=== PATIENT | female | born 1995 | race Caucasian/White ===

== ENCOUNTER 2016-11-29 01:11 | Emergency (ER) | payer BC ==
[~2016-11-29] VITALS: Ht 167.6 cm; Wt 71.2 kg
[~2016-11-29 01:11] MED LIST: CLR10 PO
[2016-11-29 01:13] VITALS: TEMP 36.9; Ht 167.6 cm; Wt 71.2 kg
[2016-11-29 01:37] VITALS: O2SAT 99
[2016-11-29] MEDS ORDERED: SODIUM CHLORIDE 0.9% 1000ML 1,000 ML IV ONE (01:45)
[2016-11-29 01:49] LABS: BASO % 0.3 %; BASO ABS # 0.03 K/uL (0-0.2); COMPLETE YES; EOS % 1.6 %; HEMATOCRIT 43.9 % (37-47); IG% 0.2 %; LYMPH % 47.9 %; LYMPH ABS # 4.32 K/uL (1.2-3.4); MEAN CELL VOLUME 89.6 fL (80-100); MEAN CORPUSCULAR HEMOGLOBIN 31.2 pg (25-34); MEAN CORPUSCULAR HGB CONC 34.9 g/dl (32-36); MEAN PLATELET VOLUME 10.9 fL (7.4-10.4); MONO % 6.9 %; NEUT % 43.1 %; PLATELET COUNT 269 K/uL (130-400); WHITE BLOOD COUNT 9.02 K/uL (4.8-10.8)
[2016-11-29 02:11] LABS: BUN/CREATININE RATIO 13.3 (10-20); CALCIUM 10.1 mg/dl (8.5-10.1); CREATININE 0.65 mg/dl (0.60-1.20); POTASSIUM 3.4 mmol/L (3.5-5.1)
[2016-11-29 02:14] LABS: ALB/GLOB RATIO 1.1 (0.9-2)
[2016-11-29 03:01] VITALS: BP 110/68; PULSE 71; O2SAT 99
--- NOTE | 2016-11-29 06:38 | EMERGENCY ROOM VISIT NOTE ---
History First contact with patient: :29 Chief Complaint: CHEST PAIN Stated Complaint: CHEST PAIN,HEART PALPITATIONS,LT LEG/CALF PAIN,SOB Nursing Triage Summary: Patient reports palpitations that began around 2200 tonight. States prior to this, she had a burning in the left side of the chest. Patient is unable to describe her CP presently. States she feels SOB when palpitations occur. Reports that she just started drinking starbucks this week and she typically does not drink caffeinated beverages. Denies any cardiac hx. History of Present Illness The patient is a 21 year old female who presents to the Emergency Room with complaints of palpitations and burning in the left side of her chest. The patient also reports that she has had ongoing left leg pain after starting control 2 months ago. The patient does not have fever or chills. She reports that she does have some shortness of breath when the palpitations occur. The patient states that she has had symptoms throughout the course of the last 24 hours. 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 Patient denies caffeine or alcohol use. She has not had similar symptoms in the past. She contacted the health hotline from her insurance company, who referred her to the ER for further management. The patient rates her current discomfort a 2/10. Review of Systems More than 10 systems were reviewed and otherwise negative with the exception of history of present illness. Past Medical/Surgical History No chronic medical disease Family History No pertinent family history Social History Smoking Status: Never Smoker Housing Status: lives with significant other Current/Historical Medications Scheduled Loratadine (Claritin), 10 MG PO DAILY Allergies Coded Allergies: No Known Allergies (Unverified Allergy, Mild, none, 06/30/09) Physical Exam Vital Signs Date Time Temp Pulse Resp B/P Pulse Ox O2 Delivery O2 Flow Rate FiO2 11/29/16 03:01 71 20 110/68 99 11/29/16 01:37 99 Room Air 11/29/16 01:37 99 Room Air 11/29/16 01:13 36.9 77 16 138/85 99 Room Air Pain Rating (0-10): 0 Physical Exam VITALS: Vitals are noted on the nurse's note and reviewed by myself. Vital signs stable. GENERAL: Well-developed, well-nourished, white female, who is in no acute distress and resting comfortably. Patient is cooperative with the examination. HEAD: Normocephalic atraumatic. HEART: Regular rate and rhythm without murmurs gallops or rubs. LUNGS: Clear to auscultation bilaterally without wheezes, rales or rhonchi. No retractions or accessory muscle use. ABDOMEN: Positive normal bowel sounds x 4. Soft, nontender, without masses or organomegaly. No guarding or rebound tenderness. MUSCULOSKELETAL: No muscle atrophy, erythema, or edema noted. Full range of motion without joint tenderness in all extremities. Negative Homans sign bilateral. Medical Decision & Procedures ER Provider Diagnostic Interpretation: Preliminary Findings Only See Final Report For Complete Findings US VENOUS LEFT LOWER EXTREMITY: No evidence of deep vein thrombosis. Laboratory Results 11/29/16 01:30 Red Blood Count 4.90, Mean Corpuscular Volume 89.6, Mean Corpuscular Hemoglobin 31.2, Mean Corpuscular Hemoglobin Concent 34.9, Mean Platelet Volume 10.9, Neutrophils (%) (Auto) 43.1, Lymphocytes (%) (Auto) 47.9, Monocytes (%) (Auto) 6.9, Eosinophils (%) (Auto) 1.6, Basophils (%) (Auto) 0.3, Neutrophils # (Auto) 3.89, Lymphocytes # (Auto) 4.32, Monocytes # (Auto) 0.62, Eosinophils # (Auto) 0.14, Basophils # (Auto) 0.03 11/29/16 01:30 Test 11/29/16 01:30 11/29/16 01:51 White Blood Count 9.02 K/uL (4.8-10.8) Red Blood Count 4.90 M/uL (4.2-5.4) Hemoglobin 15.3 g/dL (12.0-16.0) Hematocrit 43.9 % (37-47) Mean Corpuscular Volume 89.6 fL (80-100) Mean Corpuscular Hemoglobin 31.2 pg (25-34) Mean Corpuscular Hemoglobin Concent 34.9 g/dl (32-36) Platelet Count 269 K/uL (130-400) Mean Platelet Volume 10.9 fL (7.4-10.4) Neutrophils (%) (Auto) 43.1 % Lymphocytes (%) (Auto) 47.9 % Monocytes (%) (Auto) 6.9 % Eosinophils (%) (Auto) 1.6 % Basophils (%) (Auto) 0.3 % Neutrophils # (Auto) 3.89 K/uL (1.4-6.5) Lymphocytes # (Auto) 4.32 K/uL (1.2-3.4) Monocytes # (Auto) 0.62 K/uL (0.11-0.59) Eosinophils # (Auto) 0.14 K/uL (0-0.5) Basophils # (Auto) 0.03 K/uL (0-0.2) RDW Standard Deviation 40.7 fL (36.4-46.3) RDW Coefficient of Variation 12.5 % (11.5-14.5) Immature Granulocyte % (Auto) 0.2 % Immature Granulocyte # (Auto) 0.02 K/uL (0.00-0.02) Anion Gap 9.0 mmol/L (3-11) Est Creatinine Clear Calc Drug Dose 137.2 ml/min Estimated GFR () 146.1 Estimated GFR (Non- 126.0 BUN/Creatinine Ratio 13.3 (10-20) Calcium Level 10.1 mg/dl (8.5-10.1) Total Bilirubin 0.3 mg/dl (0.2-1) Aspartate Amino Transf (AST/SGOT) 8 U/L (15-37) Alanine Aminotransferase (ALT/SGPT) 19 U/L (12-78) Alkaline Phosphatase 25 U/L (45-117) Total Protein 8.5 gm/dl (6.4-8.2) Albumin 4.4 gm/dl (3.4-5.0) Globulin 4.1 gm/dl (2.5-4.0) Albumin/Globulin Ratio 1.1 (0.9-2) Bedside D-Dimer 349 ng/mlFEU (0-450) Bedside Troponin I 0.000 ng/ml (0-0.045) Medications Administered Medications (Trade) Dose Ordered Sig/Gabriela Route Start Time Stop Time Status Last Admin Dose Admin Sodium Chloride (Nss 1000ml) 1,000 ml @ 999 mls/hr Q1H1M ONCE IV 11/29/16 01:45 11/29/16 02:45 DC 11/29/16 01:47 999 MLS/HR ED Course Physical exam and history were performed. Nursing notes and EMR were reviewed. Patient appears to have palpitations in the left side of her chest today. The patient does not have a cardiac history and appears well on exam. She additionally complains of left leg pain after starting control about 2 months ago. IV access was established and labs were obtained. The patient was hydrated and medicated as above. Chest x-ray and ultrasound were performed. EKG was sinus rhythm without ST elevation. The patient's blood work is as above and was reviewed. She does not have a significant elevated white blood cell count, gross anemia, bandemia, or significant electrolyte imbalance. Troponin and d-dimer 1 are negative. Chest x-ray is without acute process. Ultrasound does not show evidence of a DVT. Patient remained in stable condition throughout her emergency department stay. On repeat examination she did not have any worsening of her symptoms and felt well. I had a lengthy discussion with her regarding her results. The patient was very relieved, and indicated that she had been researching her symptoms online. She likely has some element of anxiety and stressors with her engagement that are contributing to her symptoms. Overall though the patient appears well for discharge home. She should follow with her primary care physician with any ongoing or persistent symptoms. She was otherwise invited back to the ER with any new, worsening, or concerning symptoms. The chart was completed utilizing [employer] Speech Voice Recognition Software. Grammatical errors, random word insertions, pronoun errors, and incomplete sentences are an occasional consequence of this system due to software limitations, ambient noise, and hardware issues. Any formal questions or concerns about the content, text, or information contained within the body of this dictation should be directly addressed to the provider for clarification. . Medical Decision Differential diagnosis includes, but is not limited to: Myocardial infarction, dysrhythmia, pericarditis, pneumothorax, aortic aneurysm/dissection, DVT/PE, anxiety, GERD, PUD, electrolyte imbalance, thyroid disorder, pneumonia, bronchitis, pancreatitis, and others Impression Primary Impression: Non-cardiac chest pain Departure Information Dispostion Home / Self-Care Condition GOOD Referrals Tan Jade M.D.(CICI) (PCP) Forms HOME CARE DOCUMENTATION FORM, IMPORTANT VISIT INFORMATION Patient Instructions My [facility] Additional Instructions You were seen and evaluated today on an emergency basis only. This is not a substitute for, or an effort to provide, complete comprehensive medical care. It is not possible to recognize and treat all injuries or illnesses in a single emergency department visit. For this reason it is recommended that you followup with your primary care physician next week for ongoing care and evaluation. Drink plenty fluids and remain well hydrated. For baseline pain relief you may alternate ibuprofen and acetaminophen every 4 hours for pain control. Take 600 mg ibuprofen (Advil) and then 4 hours later take 1000 mg acetaminophen (Tylenol). Do not take more than 3000 mg acetaminophen in a single day. You are welcome to return to the emergency department anytime with new, worsening, or concerning symptoms.
--- NOTE | 2016-11-29 07:11 | DIAGNOSTIC IMAGING REPORT ---
LEFT LOWER EXTREMITY VENOUS DOPPLER HISTORY: Left calf pain. COMPARISON STUDY: None. FINDINGS: There is normal compressibility, flow, and augmentation within the left lower extremity deep venous system. IMPRESSION: No DVT within the left lower extremity. Electronically signed by: Edis Hall M.D. 11/29/2016 7:09 AM Dictated Date/Time: 11/29/2016 7:09 AM
--- NOTE | 2016-11-29 07:26 | DIAGNOSTIC IMAGING REPORT ---
CHEST ONE VIEW PORTABLE HISTORY: Atypical Chest pains COMPARISON: None. FINDINGS: The lungs are clear. Cardiac silhouette is normal in size. No pleural effusions. No pneumothorax. IMPRESSION: No acute process. Electronically signed by: Edis Hall M.D. 11/29/2016 7:25 AM Dictated Date/Time: 11/29/2016 7:24 AM
== END 2016-11-29 03:02 | disposition home or self-care (01) ==
LOC: C.EDB 01:13
DX: R07.9 Chest pain, unspecified (principal)

== ENCOUNTER 2022-01-26 18:18 | Inpatient (IN) ==
[2022-01-26] MEDS ORDERED: OXYTOCIN 30 UNITS/500 ML BAG IV PRN ×2 (19:11→22:17)
[2022-01-26 19:45] LABS: Hematocrit (blood only) 42.1 % (37-47); Hemoglobin 14.3 g/dL (12.0-16.0); Mean Corpuscular Hemoglobin 31.6 pg (25-34); Mean Corpuscular Volume 92.9 fL (80-100); Mean Platelet Volume 11.6 fL (7.4-10.4); Platelet Count 176 K/uL (130-400); RDW Coefficient of Variation 13.8 % (11.5-14.5); RDW Standard Deviation 46.7 fL (36.4-46.3); Red Blood Count 4.53 M/uL (4.2-5.4); White Blood Count 12.12 K/uL (4.8-10.8)
--- NOTE | 2022-01-26 22:17 | History & Physical Report ---
Date of Service January 26, 2022 Assessment & Plan (1) SROM (spontaneous rupture of membranes): (2) : Plan: Oxytocin augmentation of labor Admission and Anticipated Discharge Date Admission Date: January 26, 2022 History of Present Illness Chief Complaint: SROM clear fluid at 4:30 PM Primary Care Provider: Tan Jade MD 26 F P0000 at 39.3 weeks admitted with SROM clear fluid at 1630 today. No contractions . GBS is negative. Covid is negative. Allergies Allergy/AdvReac Type Severity Reaction Status Date / Time No Known Allergies Allergy Mild none Unverified 06/30/09 00:21 Home Medications Medication Instructions Recorded Confirmed Type aspirin 81 mg capsule 81 mg PO DAILY 01/26/22 01/26/22 History coenzyme Q10 30 mg capsule (CoQ-10) 30 mg PO DAILY 01/26/22 01/26/22 History fluoxetine 20 mg capsule (Prozac) 20 mg PO DAILY 01/26/22 01/26/22 History loratadine 10 mg tablet 10 mg PO DAILY 01/26/22 01/26/22 History magnesium oxide 200 mg PO DAILY 01/26/22 01/26/22 History riboflavin (vitamin B2) 400 mg 400 mg PO DAILY 01/26/22 01/26/22 History tablet Patient History Medical History Anxiety Migraines Social History Smoking Status: Never smoker Hx Alcohol Use: No Hx Substance Use: No Preferred Language: 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 Beliefs That Will Affect Care: None marital status: Current Living Situation: Spouse Other Information That Helps Us Care for You: No Feels Safe at Home: Yes Safety Concerns: Feels Safe At This Time Assistive Devices: None 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 neg Review of Systems All systems reviewed & are unremarkable except as noted in HPI & below Physical Exam Constitutional: WD/WN, vitals as above Eyes: PERRL, conjunctivae normal, anicteric sclerae Respiratory: normal respiratory effort, lungs clear to auscultation Cardiovascular: RRR, no murmur, no edema Skin: no rashes, warm and dry Neurologic: patellar DTR's 2+ bilat, sensation intact Psychiatric: A+Ox3, euthymic affect Genitourinary: no vaginal lesions, no adnexal mass normal external appearance OB Exam Abdomen: + fundal height, + heart tones and + vertex Manual OB Exam: + cervical dilation 2 cm, + cervical effacement 70%, + station -2 and + amniotic fluid clear and nitrazine positive OB Exam Monitor Tracing: + external FHT monitor used, + external uterine monitor used, + category I and + normal FHT variability Results & Data ([facility]) Vital Signs (Past 12 Hours) Vital Signs Temp Pulse Resp BP 01/26/22 20:48 36.8 C 18 01/26/22 18:33 36.8 C 20 01/26/22 18:32 36.8 C 91 H 20 128/71 Laboratory Results Laboratory Results - last 24 hr 01/26/22 01/26/22 01/26/22 19:05 19:23 19:23 WBC 12.12 H RBC 4.53 Hgb 14.3 Hct 42.1 MCV 92.9 MCH 31.6 MCHC 34.0 RDW Std Deviation 46.7 H RDW Coeff of June 13.8 Plt Count 176 MPV 11.6 H SARS-CoV-2, RNA, NAAT NEGATIVE Blood Type A Positive Antibody Screen NEGATIVE Code Status & VTE Plan VTE Prophylaxis Plan VTE Prophylaxis will be ordered: No Monitoring External Monitor Cat 1
[2022-01-27] MEDS: LACTATED RINGER'S 1,000 ML IV PRN ×2 (00:01→05:07)
[2022-01-27] MEDS ORDERED: ePHEDrine sulfate 50 MG/ML AMP ONE (04:47)
[2022-01-27] MEDS ORDERED: fentaNYL citrate 100 MCG/2 ML VIAL ONE (04:48)
[2022-01-27] MEDS ORDERED: BUPIVACAINE 0.25% 30 ML VIAL ONE (04:48)
[2022-01-27] MEDS ORDERED: fentaNYL 2MCG/ML ROPIVACAINE 1.25MG/ML 100 ML BAG EPI ONE (04:48)
[2022-01-27] MEDS ORDERED: SODIUM CHLORIDE 0.9% INJ 10 ML VIAL ONE (04:48)
[2022-01-27] MEDS ORDERED: ONDANSETRON INJ 2 MG/ML 2 ML VIAL IV PRN (04:55)
[2022-01-27] MEDS ORDERED: NALOXONE HCL 1 MG in SODIUM CHLORIDE 0.9% 1000ML 1,000 ML IV PRN (04:55)
[2022-01-27] MEDS ORDERED: NALBUPHINE HCL INJ 10 MG/ML AMP IV PRN (04:55)
[2022-01-27] MEDS ORDERED: ePHEDrine sulfate 50 MG/ML AMP IV PRN (04:55)
[2022-01-27] MEDS ORDERED: diphenhydrAMINE 50 MG/ML VIAL IV PRN (04:55)
[2022-01-27] MEDS ORDERED: NALOXONE HCL 0.4 MG/1 ML VIAL/CARP IV PRN (04:55)
[2022-01-27] MEDS ORDERED: fentaNYL 2MCG/ML ROPIVACAINE 1.25MG/ML 100 ML BAG EPI PRN (04:55)
--- NOTE | 2022-01-27 04:57 | Anesthesiology Consultation ---
Date of Service January 27, 2022 Assessment & Plan (1) Encounter for pre-operative examination: Chart Review Chart Review: Patient NOT seen in Pre Admission Testing and Acceptable Risk for Labor Epidural Consults Requested none History Height/Weight Height: 5 ft 4 in Weight: 97.069 kg Allergies Allergy/AdvReac Type Severity Reaction Status Date / Time No Known Allergies Allergy Mild none Unverified 06/30/09 00:21 Medications Home Medications Medication Instructions Recorded Confirmed Last Taken aspirin 81 mg capsule 81 mg PO DAILY 01/26/22 01/26/22 01/26/22 08:00 coenzyme Q10 30 mg capsule (CoQ-10) 30 mg PO DAILY 01/26/22 01/26/22 01/26/22 08:00 fluoxetine 20 mg capsule (Prozac) 20 mg PO DAILY 01/26/22 01/26/22 01/26/22 1 9:57 loratadine 10 mg tablet 10 mg PO DAILY 01/26/22 01/26/22 01/26/22 08:00 magnesium oxide 200 mg PO DAILY 01/26/22 01/26/22 01/26/22 08:00 riboflavin (vitamin B2) 400 mg 400 mg PO DAILY 01/26/22 01/26/22 01/26/22 08:00 tablet Active Medications Generic Name Dose Route Start Last Admin Trade Name Freq PRN Reason Stop Dose Admin Lactated Ringer's 1,000 mls @ 125 mls/hr 01/26/22 19:11 01/27/22 05:07 Lr IV 01/28/22 19:10 125 mls/hr .Q8H PRN Administration L&D Protocol Protocol Oxytocin 30 units in 500 mls @ 6 mls/hr 01/26/22 22:17 01/27/22 03:45 Pitocin IV 01/28/22 22:16 0.36 units/hr .Q24H PRN 6 mls/hr Labor Induction/Augmentation Titration Protocol 0.36 UNITS/HR Past Medical History Medical History Anxiety Migraines Exercise / Class Metabolic Activity II 4-5 Yardwork/Stairs/Walk up hill Past Anesthesia History No Hx of Anesthesia Complications and No Family Hx of Anesthesia Complications History of PONV No Hx of PONV and No Hx of Motion Sickness Social History Smoking Status: Never smoker Do You Dip or Chew Tobacco: No Hx Alcohol Use: No Hx Substance Use: No substance use type: does not use Physical Exam Vital Signs Last Vital Signs Temp 36.9 C 01/27/22 03:30 Pulse 73 01/27/22 05:16 Resp 18 01/27/22 03:30 BP 118/81 01/27/22 04:17 Pulse Ox 98 01/27/22 05:16 Testing Laboratory Results 01/26/22 19:23 Blood Type A Positive 01/26/22 19:23 Antibody Screen NEGATIVE 01/26/22 19:23
[2022-01-27] MEDS ORDERED: LIDOCAINE 1% LOCAL 20 ML VIAL ONE (14:01)
[2022-01-27] MEDS ORDERED: oxyCODONE/ACETAMINOPHEN 5mg/325mg TAB PO PRN (14:16)
[2022-01-27] MEDS ORDERED: bisacodyL 10 MG SUPP PR PRN (14:16)
[2022-01-27] MEDS ORDERED: BENZOCAINE 20% AER SPR 82.5 GM CAN EXT PRN (14:16)
[2022-01-27] MEDS ORDERED: DIPHTHERIA/TETANUS/PERTUSSIS 0.5 ML SYR/VIAL IM ONE (14:16)
[2022-01-27] MEDS ORDERED: HYDROCORTISONE ACETATE 25 MG SUPP PR PRN (14:16)
[2022-01-27] MEDS ORDERED: OXYTOCIN 30 UNITS/500 ML BAG IV PRN (14:16)
--- NOTE | 2022-01-27 14:18 | Labor Progress Brief Note ---
Date of Service January 27, 2022 Assessment & Plan Admission and Anticipated Discharge Date Admission Date: January 26, 2022 Results & Data ([facility]) Vital Signs (Past 12 Hours) Vital Signs Temp Pulse Resp BP Pulse Ox 01/27/22 09:38 92 H 94 01/27/22 09:36 88 96 01/27/22 09:31 88 97 01/27/22 09:26 88 99 01/27/22 09:25 83 121/68 01/27/22 09:22 84 92 01/27/22 09:21 92 H 97 01/27/22 09:16 95 H 98 01/27/22 09:12 85 128/74 01/27/22 09:11 91 H 97 01/27/22 09:09 89 90 01/27/22 09:06 87 97 01/27/22 09:01 88 95 01/27/22 08:56 83 97 01/27/22 08:55 79 119/69 01/27/22 08:51 85 97 01/27/22 08:46 87 97 01/27/22 08:41 88 125/72 96 01/27/22 08:36 87 98 01/27/22 08:31 87 98 01/27/22 08:26 86 123/63 97 01/27/22 08:21 85 95 01/27/22 08:16 88 98 01/27/22 08:11 84 96 01/27/22 08:10 88 125/72 01/27/22 08:06 84 96 01/27/22 08:01 84 96 01/27/22 07:56 83 96 01/27/22 07:55 84 123/67 01/27/22 07:51 81 96 01/27/22 07:46 81 97 01/27/22 07:41 82 97 01/27/22 07:40 79 126/67 01/27/22 07:36 79 98 01/27/22 07:31 85 97 01/27/22 07:26 79 96 01/27/22 07:25 77 125/66 01/27/22 07:21 83 98 01/27/22 07:16 78 97 01/27/22 07:11 76 114/64 97 01/27/22 07:06 81 97 01/27/22 07:01 78 99 01/27/22 07:00 81 83 L 01/27/22 06:59 18 01/27/22 06:56 76 121/69 99 01/27/22 06:51 77 100 01/27/22 06:50 37.1 C 01/27/22 06:46 82 99 01/27/22 06:44 94 H 94 01/27/22 06:41 79 100 01/27/22 06:36 76 100 01/27/22 06:35 79 76 L 01/27/22 06:31 78 99 01/27/22 06:26 76 100 01/27/22 06:25 75 109/66 01/27/22 06:23 79 90 01/27/22 06:21 78 99 01/27/22 06:16 81 99 01/27/22 06:12 76 124/72 01/27/22 06:11 77 100 01/27/22 06:06 77 98 01/27/22 06:01 73 97 01/27/22 06:00 18 01/27/22 05:56 82 122/68 98 01/27/22 05:51 75 97 01/27/22 05:46 75 98 01/27/22 05:45 18 01/27/22 05:41 84 97 01/27/22 05:39 74 120/70 01/27/22 05:37 76 119/68 01/27/22 05:36 71 98 01/27/22 05:35 72 116/68 01/27/22 05:34 74 125/68 01/27/22 05:32 69 113/63 01/27/22 05:31 68 98 01/27/22 05:30 18 01/27/22 05:29 74 117/68 05 05:27 80 113/63 05 05:26 71 98 05 05:25 69 120/66 05 05:23 71 123/70 05 05:21 73 99 01/27/22 05:16 73 98 05 05:15 18 01/27/22 05:11 79 98 01/27/22 04:17 67 118/81 05 03:30 36.9 C 18 01/27/22 03:18 74 112/63 05 03:11 88 129/58 L 01/27/22 02:18 73 99/54 L 01/27/22 01:30 36.9 C 18 01/27/22 01:16 82 115/62 01/27/22 00:42 80 100/56 L 01/26/22 23:35 93 H 113/57 L 01/26/22 23:33 36.9 C 18
--- NOTE | 2022-01-27 14:21 | Delivery Summary ---
Vaginal Delivery Summary Date of Service January 27, 2022 Vaginal Delivery Summary Delivery Note History synopsis: Patient is a 26-year-old G1, P0 who presented at 39 weeks and 2 days for prelabor rupture of membranes. Was found to be 2 cm dilated. Labor Course: Patient was started on oxytocin for augmentation, progressed to 6 cm this morning and received an epidural for pain control. She then progressed to 9 cm, and then complete. She started pushing with nursing staff at 11:15 AM. When she was ready I was called for delivery Delivery Summary: Patient was placed in the dorsal lithotomy position. She was prepped and draped in the usual sterile fashion. Upon maternal pushing the head was delivered atraumatically followed by the anterior shoulders, posterior shoulders then the remainder of the infants body. The infants mouth and nose were bulb suction below the level of the perineum. A male was delivered at 1341, weight pending with APGARS of 7 at 1 minute and 9 at 5 minutes. The umbilical cord was clamped times two and cut. The infant was handed off to the awaiting nursing staff. Cord blood gases were obtained. The placenta delivered intact with three vessel cord at 1345. Placenta was sent to pathology ([facility]). Thirty units of Pitocin were added to the IV fluid and allowed to run freely. Uterine massage was performed until uterus was deemed firm. Upon inspection of the perineum, vagina and cervix were intact. There was noted to be mild uterine atony, that responded to bimanual massage. There was noted to be a periurethral laceration, and a straight catheter was placed into the patient's urethra to protect it from suture ligation. 3-0 chromic was used in a [id number] fashion to create hemostasis in the periurethral laceration. The straight catheter was then removed. Attention was then placed to patient second-degree perineal laceration which was repaired with 3-0 Vicryl in the usual fashion. Upon re-inspection the patient was hemostatic. Uterus again massaged and found to be firm. Needle and sponge counts were correct. Patient was stable and allowed to recover in L&D room. Infant was stable and remained in room with mother in the Family Care Unit. Estimated blood loss 700 mL
[2022-01-27 15:18] LABS: Base Excess Cord Venous Blood -5.2 mEq/L (-7.7-1.9); Cord Venous Blood HCO3 20 mmol/L (18.4-26.8); Cord Venous Blood PCO2 38 mmHg (30.4-57.2); Cord Venous Blood PO2 32 mmHg (14.1-43.3); Cord Venous Blood pH 7.34 (7.20-7.44)
[2022-01-27] MEDS: IBUPROFEN 600 MG TAB PO PRN (17:10)
--- NOTE | 2022-01-27 17:13 | Anesthesia Procedure Note ---
Date of Service January 27, 2022 Anesthesia Post Epidural Note Vital Signs Vital Signs: Temp Pulse Resp BP Pulse Ox 36.8 C 111 H 18 114/73 94 01/27/22 16:31 01/27/22 16:31 01/27/22 16:31 01/27/22 16:31 01/27/22 14:18 Notes Mental Status: alert / awake / arousable and participated in evaluation Patient Amnestic to Procedure: No Nausea / Vomiting: adequately controlled Pain: adequately controlled Airway Patency, RR, SpO2: stable & adequate BP & HR: stable & adequate Hydration State: stable & adequate Neuraxial Anesthesia: was administered and sensory block is resolving Anesthetic Complications: no major complications apparent and Pt Satisfied with anesthetic care Epidural: Removed without complications and With tip intact
[2022-01-27] MEDS: ACETAMINOPHEN 325 MG TAB PO PRN (20:49)
[2022-01-27] MEDS: DOCUSATE SODIUM 100 MG CAP PO SCH (20:49)
[2022-01-28] MEDS: IBUPROFEN 600 MG TAB PO PRN ×4 (03:56→20:23)
--- NOTE | 2022-01-28 06:53 | Obstetrical Progress Note ---
Date of Service January 28, 2022 Assessment & Plan (1) Normal course: Continue routine PP care Anticipate d/c home tomorrow Subjective Ambulation: ambulating normally Voiding: no voiding problems Passing Gas:: Yes Diet Tolerance:: regular diet Lochia:: Moderate Feeding Type:: breast feeding Current Pain Level(1-10): 2 Doing well, bonding with baby Physical Exam Constitutional WD/WN, vitals as above Respiratory normal respiratory effort, lungs clear to auscultation Cardiovascular RRR, no murmur, no edema Gastrointestinal (Abdomen) normal bowel sounds, soft, nontender, no hepatosplenomegaly Results & Data ([facility]) Vital Signs (Past 12 Hours) Vital Signs Temp Pulse Resp BP 01/28/22 03:57 36.7 C 81 20 115/73 01/27/22 23:02 36.3 C L 78 18 115/75 Laboratory Results Morning CBC pending
[2022-01-28 07:01] LABS: Hematocrit (blood only) 32.3 % (37-47); Hemoglobin 10.9 g/dL (12.0-16.0); Mean Corpuscular Hemoglobin 31.7 pg (25-34); Mean Corpuscular Hgb Conc 33.7 g/dL (32-36); Mean Corpuscular Volume 93.9 fL (80-100); Mean Platelet Volume 11.5 fL (7.4-10.4); Platelet Count 167 K/uL (130-400); RDW Coefficient of Variation 13.9 % (11.5-14.5); RDW Standard Deviation 47.6 fL (36.4-46.3); Red Blood Count 3.44 M/uL (4.2-5.4)
[2022-01-28] MEDS: PRENATAL VITAMIN 1 TAB PO SCH (08:48)
[2022-01-28] MEDS: DOCUSATE SODIUM 100 MG CAP PO SCH ×2 (08:48→20:24)
[2022-01-28] MEDS: FLUoxetine HCL 20 MG CAP PO SCH (08:50)
[2022-01-28] MEDS ORDERED: bisacodyL 5 MG TABEC PO SCH (20:00)
[2022-01-29] MEDS: IBUPROFEN 600 MG TAB PO PRN ×2 (05:58→10:59)
[2022-01-29] MEDS: ACETAMINOPHEN 325 MG TAB PO PRN ×2 (05:59→14:13)
[2022-01-29 07:46] LABS: Hematocrit (blood only) 34.1 % (37-47); Hemoglobin 11.2 g/dL (12.0-16.0)
[2022-01-29] MEDS: PRENATAL VITAMIN 1 TAB PO SCH (08:36)
[2022-01-29] MEDS: DOCUSATE SODIUM 100 MG CAP PO SCH (08:37)
[2022-01-29] MEDS: FLUoxetine HCL 20 MG CAP PO SCH (08:37)
--- NOTE | 2022-01-29 09:24 | Obstetrical Progress Note ---
Date of Service January 29, 2022 Subjective Ambulation: ambulating normally Voiding: no voiding problems Passing Gas:: Yes Diet Tolerance:: regular diet Lochia:: Small Feeding Type:: breast feeding Current Pain Level(1-10): 0 doing well. plans for d/c Physical Exam Constitutional WD/WN, vitals as above abdomen soft and non-tender, fundus firm. no edema. neg Kylah's Results & Data ([facility]) Vital Signs (Past 12 Hours) Vital Signs Temp Pulse Resp BP Pulse Ox 01/29/22 07:05 36.5 C 77 22 122/77 100 01/28/22 23:55 36.7 C 69 16 115/73 98 Laboratory Results 01/26/22 01/26/22 01/26/22 19:05 19:23 19:23 WBC 12.12 H RBC 4.53 Hgb 14.3 Hct 42.1 MCV 92.9 MCH 31.6 MCHC 34.0 RDW Std Deviation 46.7 H RDW Coeff of June 13.8 Plt Count 176 MPV 11.6 H Cord ABG pH Cord ABG pCO2 Cord ABG pO2 Cord ABG HCO3 Cord ABG Base Excess Cord ABG O2 Sat Cord VBG pH Cord VBG pCO2 Cord VBG pO2 Cord VBG HCO3 Cord VBG Base Excess Cord VBG O2 Sat Barometric Pressure Blood Gas Comments SARS-CoV-2, RNA, NAAT NEGATIVE Blood Type A Positive Antibody Screen NEGATIVE 01/27/22 01/27/22 01/28/22 14:00 14:00 06:14 WBC 19.40 H RBC 3.44 L Hgb 10.9 L D Hct 32.3 L MCV 93.9 MCH 31.7 MCHC 33.7 RDW Std Deviation 47.6 H RDW Coeff of June 13.9 Plt Count 167 MPV 11.5 H Cord ABG pH Cord ABG pCO2 Cord ABG pO2 Cord ABG HCO3 Cord ABG Base Excess Cord ABG O2 Sat Cord VBG pH 7.34 Cord VBG pCO2 38 Cord VBG pO2 32 Cord VBG HCO3 20 Cord VBG Base Excess -5.2 Cord VBG O2 Sat 72.0 H Barometric Pressure 730.9 Blood Gas Comments Not Reportable INFANT A SARS-CoV-2, RNA, NAAT Blood Type Antibody Screen 01/29/22 06:55 WBC RBC Hgb 11.2 L Hct 34.1 L MCV MCH MCHC RDW Std Deviation RDW Coeff of June Plt Count MPV Cord ABG pH Cord ABG pCO2 Cord ABG pO2 Cord ABG HCO3 Cord ABG Base Excess Cord ABG O2 Sat Cord VBG pH Cord VBG pCO2 Cord VBG pO2 Cord VBG HCO3 Cord VBG Base Excess Cord VBG O2 Sat Barometric Pressure Blood Gas Comments SARS-CoV-2, RNA, NAAT Blood Type Antibody Screen
== END 2022-01-29 16:15 | disposition home or self-care (01) | DRG 806 ==
LOC: OPB 18:18 → 4S1 18:20 → 4E2 01-27 16:39
DX: Z79.82 Long term (current) use of aspirin; O99.344 Other mental disorders complicating childbirth; F41.9 Anxiety disorder, unspecified; Z79.899 Other long term (current) drug therapy; Z3A.39 39 weeks gestation of pregnancy; Z37.0 Single live birth; O71.82 Other specified trauma to perineum and vulva; O72.1 Other immediate postpartum hemorrhage; O42.02 Full-term premature rupture of membranes, onset of labor within 24 hours of rupture; Z20.822 Contact with and (suspected) exposure to COVID-19